=== PATIENT | female | born 1980 | race Caucasian/White ===

== ENCOUNTER 2020-01-16 07:43 | Outpatient (REF) | payer OTHER, SELFPAY | END 2020-01-16 07:44 | disposition home or self-care (01) | LOC: HO.LAB 07:43 | PROVIDERS: Visit Provider Internal Medicine | DX: Z20.828 Contact with and (suspected) exposure to other viral communicable diseases (principal) | CPT/HCPCS: C9803; U0003 ==

== ENCOUNTER 2020-01-24 08:42 | Outpatient (REF) | payer OTHER, SELFPAY | END 2020-01-24 08:43 | disposition home or self-care (01) | LOC: HO.LAB 08:42 | PROVIDERS: Visit Provider Internal Medicine | DX: Z20.828 Contact with and (suspected) exposure to other viral communicable diseases (principal) | CPT/HCPCS: C9803; U0003 ==

== ENCOUNTER 2020-03-11 07:54 | Outpatient (REF) | payer OTHER, SELFPAY | END 2020-03-11 07:55 | disposition home or self-care (01) | LOC: HO.LAB 07:54 | PROVIDERS: PCP Nurse Practitioner Adult Health; Visit Provider Internal Medicine | DX: Z20.828 Contact with and (suspected) exposure to other viral communicable diseases (principal) | CPT/HCPCS: C9803; U0003 ==